=== PATIENT | female | born 2000 | race Caucasian/White ===

== ENCOUNTER 2022-06-25 13:00 | Inpatient (IN) | payer MEDICAID, SELFPAY ==
[2022-06-25] VITALS (23 sets, daily range): BP systolic 112–132; BP diastolic 63–78; PULSE 40–94; TEMP 36.2–36.8; O2SAT 78–100; BMI 29.5
[2022-06-25] MEDS: Lactated Ringers 1,000 ML 50 ML IV (13:25)
[2022-06-25 13:46] LABS: Absolute Lymphocyte Count 2.09 X10^3/uL (0.83-4.51); Absolute Neutrophil Count 7.2 X10^3/uL (2.0-7.7); Basophil# 0.04 X10^3/uL; Basophil% 0.4 % (0-1); Eosinophil# 0.12 X10^3/uL; Eosinophils% 1.2 % (0-5); Hematocrit 35.5 % (37-47); Hemoglobin 11.3 g/dL (12.0-15.0); Lymphocyte # 2.09 X10^3/ul (0.83-4.51); Lymphocyte % 20.3 % (19-41); Mean Corp Hgb Conc 31.8 g/dL (32-36); Mean Corpuscular Hgb 28.2 pg (27.0-32.0); Mean Corpuscular Volume 88.5 fL (81-99); Mean Platelet Vol. 12.8 fl (6.2-12.0); Monocyte# 0.74 X10^3/uL; Monocyte% 7.2 % (0-10); NRBC Flagged by Analyzer 0 % (0-5); Platelet Count 198 K/mm3 (150-450); RBC Distribution Width CV 12.8 % (11.6-14.6); RBC Distribution Width SD 41.1 fl (35.1-43.9); Red Blood Count 4.01 M/mm3 (4.2-5.4); White Blood Count 10.3 K/mm3 (4.4-11.0)
[2022-06-25 14:38] LABS: Rubella IgG Reactive (Nonreactive); Syphilis Antibodies Non-reactive
[2022-06-25 15:18] LABS: Bacteria 0 SEEN /hpf (None Seen); Mucous, Urine 0 SEEN /hpf (<or=2+); Red Blood Cells-Urine 0 SEEN /hpf (0-5); White Blood Cells 0 SEEN /hpf (0-5)
[2022-06-25 15:26] LABS: HIV - WCH Non-Reactive (Nonreactive); Hepatitis B Surface Antigen Non-Reactive (Nonreactive); Hepatitis C Antibody Non-Reactive (Nonreactive)
[2022-06-25 15:38] LABS: Amphetamine Urine VISTA NEGATIVE (<1000 ng/mL); Barbiturate Urine VISTA NEGATIVE (< 200 ng/mL); Benzodiazepine Urine VISTA NEGATIVE (< 200 ng/mL); Cocaine Urine VISTA NEGATIVE (< 300 ng/mL); Ecstacy Urine VISTA NEGATIVE (< 500 ng/mL); Methadone Urine VISTA NEGATIVE (< 300 ng/mL); PCP Urine VISTA NEGATIVE (< 25 ng/mL); THC Urine VISTA NEGATIVE (< 50 ng/mL); Vista UDS pH Range 7
[2022-06-25 15:57] LABS: Color, Urine Yellow (Yellow); Glucose, Dipstick Normal (Normal); Ketone-Dipstick Negative (Negative); Leukocyte Esterase-Dipstick Negative /ul (Negative); Nitrite-Dipstick Negative (Negative); Occult Blood-Urine Negative /ul (Negative); Protein-Dipstick Negative (Negative); Urine Bilirubin Dipstick Negative (Negative); Urine Clarity Clear (Clear); Urine Urobilinogen Normal (Normal)
[2022-06-25 16:00] LABS: Squamous Epithelial Cells - UA 0-5 SEEN /hpf (5-10)
[2022-06-25 17:28] LABS: Chlamydia Trachomatis by PCR Negative (Negative); Neisserai gonorrhoeae by PCR Negative (Negative); Probe Check PASS; Sample Adequacy Control PASS; Specimen Processing Control PASS
--- NOTE | 2022-06-25 17:56 | PCM.HP.OB ---
HPI - General General Date of Admission: 06/25/22 HPI Narrative VU HERRERA, is a 22 F who presents IAL 5 cm and PPROM since night 8 pm. she has received care athome by a meter/relay craftsman miguel faria in the community. no complications per the patient or auto detailer, due date based on lmp and positive testing for july 19. FH measurig consistent with LMP PFSH PFSH Home Medications calcium 300 mg chewable tablet 1 mg PO BID 06/25/22 [History Last Taken 06/24/22 09:00] pnv #[id number] acid-dha 28 mg-975 mcg-200 mg oral powder efferv pk 2 ea PO BID 06/25/22 [History Last Taken 06/24/22 09:00] Allergy/AdvReac Type Severity Reaction Status Date / Time No Known Allergies Allergy Verified 06/25/22 13:00 Surgical History (Updated 06/25/22 @ 13:28 by Yamini Ulloa) History of surgery Social History Smoking Status: Never smoker History Elective abortions Hx Para 1 Spontaneous abortions Hx # Term Pregnancies Ectopic pregnancies Hx # Pregnancies Multiple births # of living children NST FHR Rate Baby A Baseline: 140 Variability:: Moderate Accelerations:: 15 x 15 Decelerations:: None NST Reactive:: Yes FHR Category:: Category I Uterine Activity:: q3-5 ROS Constitutional Constitutional: Reports systems reviewed and no addt'l complaints, except as documented ENT HEENT: Reports systems reviewed and no addt'l complaints, except as documented Cardiovascular Cardiovascular: Reports systems reviewed and no addt'l complaints, except as documented Respiratory/Chest Respiratory/Chest: Reports systems reviewed and no addt'l complaints, except as documented Gastrointestinal Gastrointestinal: Reports systems reviewed and no addt'l complaints, except as documented and nausea; Denies abdominal pain Genitourinary Genitourinary: Reports systems reviewed and no addt'l complaints, except as documented, contractions Details: present and frequency (regular ) and movement Details: present Musculoskeletal Musculoskeletal: Reports systems reviewed and no addt'l complaints, except as documented Integumentary Integumentary: Reports as per HPI Neurologic Neurologic: Reports systems reviewed and no addt'l complaints, except as documented Endocrine Endocrinology: Reports systems reviewed and no addt'l complaints, except as documented Vital Signs Vital Signs Vital Signs: 06/25/22 12:46 06/25/22 12:46 06/25/22 13:06 Temperature Temperature Source Pulse Rate 40 L Blood Pressure 123/70 H BP Systolic 123 BP Diastolic 70 Pulse Ox 78 06/25/22 13:06 06/25/22 14:51 06/25/22 14:51 Temperature Temperature Source Pulse Rate 90 85 Blood Pressure 118/71 BP Systolic 118 BP Diastolic 71 Pulse Ox 06/25/22 14:51 06/25/22 14:51 06/25/22 14:53 Temperature 98.2 F Temperature Source Temporal Pulse Rate Blood Pressure BP Systolic BP Diastolic Pulse Ox 90 06/25/22 15:50 06/25/22 15:50 06/25/22 15:50 Temperature Temperature Source Pulse Rate 94 Blood Pressure 126/78 H BP Systolic 126 BP Diastolic 78 Pulse Ox 100 06/25/22 15:50 06/25/22 16:50 06/25/22 16:50 Temperature 97.1 F L Temperature Source Pulse Rate 82 Blood Pressure 123/69 H BP Systolic 123 BP Diastolic 69 Pulse Ox 06/25/22 16:50 06/25/22 16:50 06/25/22 16:50 Temperature 97.8 F Temperature Source Temporal Pulse Rate Blood Pressure BP Systolic BP Diastolic Pulse Ox 100 Weight Weight: 80.5 kg Body Mass Index (BMI) 29.5 Physical Exam Const alert, oriented x3 and healthy appearing Constitutional Narrative: uncomfortable with contractions HEENT normocephalic and moist oral mucous membranes Head and Scalp: atraumatic Neck full ROM, no lymphadenopathy, supple and thyroid normal General: trachea midline Thyroid: thyroid normal Lymph Lymphatic: no lymphadenopathy noted Chest inspection of chest normal Resp normal respiratory effort Cardio regular rate GI normal to inspection, nondistended, normoactive bowel sounds, soft to palpation and non-tender Inspection: gravid external exam normal Bimanual Exam - Vag & Uterus: uterus non-tender Manual OB Exam: estimated gestational size appropriate, presentation cephalic, dilated, effaced and station Extremity normal to inspection General Extremity: Negative for edema Skin no rashes or lesions noted Neuro deep tendon reflexes 2+ bilaterally Motor Exam: strength 5/5 throughout and clonus absent Psych mental status grossly normal Labs Labs Labs: Blood Type A POSITIVE Antibody Screen NEGATIVE Hct 35.5 % (37-47) L Hgb 11.3 g/dL (12.0-15.0) L Syphilis Total Ab Non-reactive Rubella IgG Antibody Reactive (Nonreactive) Hep Bs Antigen Non-Reactive (Nonreactive) HIV 1&2 Antibody Non-Reactive (Nonreactive) Assessment & Plan (1) premature rupture of membranes (PPROM) with unknown onset of labor: PLAN: Plan admit, give ampicillin, and plan pit if needed but has made cervical change
--- NOTE | 2022-06-25 17:58 | OP.PCM_ITS ---
Assessment & Plan (1) premature rupture of membranes (PPROM) with unknown onset of labor: (2) Vaginal delivery: COMMENT: sewing pattern layout technician miguel faria 36 PPROM COLLEEN Wright Maternal Data Information IWONA Calculator Estimated Delivery Date Method Current WG Current Estimate 07/19/22 Manual 36w 4d Vaginal Delivery Operative Information Date of Procedure: 06/25/22 Pre-Operative Diagnosis: IAL Post-Operative Diagnosis: same Surgery / Procedure Performed: Spontaneous Vaginal Delivery Type of Anesthesia: Local with 1% Lidocaine Special Medications: none Estimated Blood Loss: 100 Fluids Replaced: crystalloid Findings Description of Procedure: Patient began pushing and delivered the head in the STACEY presentation. The head was delivered atraumatically. The anterior and posterior shoulders delivered without complication followed by the rest of the infant and the infant was placed on the maternal abdomen. Delayed cord clamping was employed for approximately 60 seconds. Cord was clamped and cut and gentle traction was applied to the cord and the placenta delivered spontaneously immediately following it was noted to be intact with three-vessel cord. The perineum and vagina were inspected and noted to have a 1st degree laceration repaired ith 3-0 rapide in the usual fashion. EBL was 100 cc. Patient and infant tolerated delivery well. Presentation: STACEY Amniotic Membrane Rupture Type: Spontaneous Amniotic Fluid Description: Clear Placental Delivery Description: Spontaneous Placenta Disposition: [facility] Cord Vessel Description: 3 Vessels Cord Entanglement: None A Gender: Male Delayed Cord Clamping: Yes Post Vaginal Delivery Medications Given After Delivery: IV Pitocin Episiotomy Description: None Laceration: Perineal Extension/lac and 1st degree Complication Complications: None Procedures Urinary/Genital [id number]: [id number] Vaginal Delivery+PP Care([facility])
--- NOTE | 2022-06-25 18:01 | DCINST_ITS ---
Discharge Instructions Diet Discharge Diet: No restrictions Activity Discharge Activity: Return to Normal Activity, May Drive, May Shower and May Take a Tub Bath (in 4 weeks) May resume sexual activity in: 6-8 weeks (after seen by OB provider) Weight Bearing Status: Full weight bearing Lifting Restrictions: none Dressing / Incision Call your doctor if you observe: Fever of 101 or Higher, Inability to urinate, Using more than 1 pad per hour (for more than 2 hours in a row or more), Shortness of breath, Dizziness, Chest pain and - (headache not controlled with tylenol, change in vision) Follow Up Care When: in 6 weeks for visit, call the office to make the appointment. If you had elevated blood pressures call the office to be seen within 1 week. Test Results: Test results from this visit will be discussed in further detail at your follow- up appointment, if applicable. Discharge Plan Admission Admit Date/Time: 06/25/22 13:00 Attending Provider: Shantal Shook Primary Care Provider: Care Physician,Marlys Primary Discharge Orders/Prescriptions Prescriptions: No Action pnv #[id number] 28-975-200 mg-mcg-mg Powder Effervescent In Packet 2 ea PO BID calcium 300 mg Tablet,Chewable 1 mg PO BID Referrals / Follow Up: Care Physician,No Primary [Primary Care Provider] -
--- NOTE | 2022-06-25 19:17 | NURSING ---
Dr. Shook would like pitocin IM to be given first if increase of bleeding
[2022-06-25] MEDS: 0.9% Saline Lock 10 ML Syringe IV (20:12)
[2022-06-25] MEDS: Benzocaine/Lanolin/Aloe Vera 1 SPRAY EACH TOPICAL (20:12)
[2022-06-26] VITALS (11 sets, daily range): BP systolic 104–116; BP diastolic 63–69; PULSE 58–82; RESP 14–16; TEMP 36.1–36.6; O2SAT 99–100
--- NOTE | 2022-06-26 02:43 | NURSING ---
report given to emmy RN. that RN to assume care of couplet at this time.
--- NOTE | 2022-06-26 10:11 | PCM.PN.OB ---
Subjective Subjective Patient doing well without complaints. Tolerating PO. Ambulating and voiding without difficulty. feeding well. Denies chest pain, shortness of breath, calf pain/swelling, fevers, chills, lightheadedness. Objective Data Objective Data Vital Signs: Vital Signs Temp Pulse Resp BP Pulse Ox O2 Del Method 97.5 F L 82 16 108/65 99 Room Air 06/26/22 08:20 06/26/22 08:20 06/26/22 08:20 06/26/22 08:20 06/26/22 04:02 06/26/22 04:02 Oxygen Delivery Method Room Air Weight: 80.5 kg Body Mass Index (BMI) 29.5 Intake & Output: Intake and Output for Last 24 Hours 06/24/22 06/25/22 06/26/22 23:59 23:59 23:59 Intake Total 654.17 / 654.17 Output Total 500 / 500 600 / 600 Balance 154.17 / 154.17 -600 / -600 Lab / Micro Data Result Diagrams: 06/25/22 13:10 Labs: Laboratory Results - last 24 hr 06/25/22 13:10: WBC 10.3, RBC 4.01 L, Hgb 11.3 L, Hct 35.5 L, MCV 88.5, MCH 28.2, MCHC 31.8 L, RDW Std Deviation 41.1, RDW Coeff of Renzo 12.8, Plt Count 198, MPV 12.8 H, Immature Gran % (Auto) 0.900, Neut % (Auto) 70.0, Lymph % (Auto) 20.3, [place] % (Auto) 7.2, Eos % (Auto) 1.2, Baso % (Auto) 0.4, Absolute Neuts (auto) 7.2, Absolute Lymphs (auto) 2.09, Nucleated RBC % 0 06/25/22 13:10: Blood Type A POSITIVE, Antibody Screen NEGATIVE 06/25/22 13:10: Syphilis Total Ab Non-reactive, Rubella IgG Antibody Reactive 06/25/22 13:10: Hep Bs Antigen Non-Reactive, Hepatitis C Antibody Non-Reactive, HIV 1&2 Antibody Non-Reactive 06/25/22 14:50: Urine Color Yellow, Urine Clarity Clear, Urine pH 7.0, Ur Specific [place] 1.010, Urine Protein Negative, Urine Glucose (UA) Normal, Urine Ketones Negative, Urine Occult Blood Negative, Urine Nitrite Negative, Urine Bilirubin Negative, Urine Urobilinogen Normal, Ur Leukocyte Esterase Negative, Urine RBC 0 SEEN, Urine WBC 0 SEEN, Ur Squamous Epith Cells 0-5 SEEN, Urine Bacteria 0 SEEN, Urine Mucus 0 SEEN 06/25/22 14:50: Urine Opiates Screen NEGATIVE, Urine Methadone Screen NEGATIVE, Ur Barbiturates Screen NEGATIVE, Ur Phencyclidine Scrn NEGATIVE, Ur Amphetamines Screen NEGATIVE, MDMA (Ecstasy) Screen NEGATIVE, U Benzodiazepines Scrn NEGATIVE, Urine Cocaine Screen NEGATIVE, U Cannabinoids Screen NEGATIVE, Ur Drug Screen Comment 06/25/22 14:50: Chlam trachomat DNA PCR Negative, N.gonorrhoeae DNA (PCR) Negative ROS Constitutional Constitutional: Reports systems reviewed and no addt'l complaints, except as documented Cardiovascular Cardiovascular: Reports systems reviewed and no addt'l complaints, except as documented Respiratory/Chest Respiratory/Chest: Reports systems reviewed and no addt'l complaints, except as documented Gastrointestinal Gastrointestinal: Reports systems reviewed and no addt'l complaints, except as documented Physical Exam Const alert, oriented x3 and no apparent distress HEENT Head and Scalp: atraumatic Resp normal respiratory effort GI soft to palpation and non-tender Bimanual Exam - Vag & Uterus: uterus non-tender Uterus Palpation: uterus fundus firm (below Umbilicus) Assessment & Plan (1) Vaginal delivery: COMMENT: meter/relay technician miguel faria 35 PPROM COLLEEN Wright (2) premature rupture of membranes (PPROM) with unknown onset of labor: PLAN: Plan s/p PPD # 1 1. routine post delivery care 2. breast feeding- support given
[2022-06-27 01:35] VITALS: BP 102/59; PULSE 65
[2022-06-27 01:39] VITALS: BP 102/59; PULSE 65; RESP 18; TEMP 36.6; O2SAT 98
[2022-06-27 09:04] VITALS: BP 107/56; PULSE 91; RESP 16; TEMP 36.5; O2SAT 100; O2SAT 99
[2022-06-27 09:05] VITALS: BP 107/56; PULSE 88
--- NOTE | 2022-06-27 09:55 | PN.OBGYN_ITS ---
Subjective Subjective Patient doing well without complaints. Tolerating PO. Ambulating and voiding without difficulty. feeding well. Denies chest pain, shortness of breath, calf pain/swelling, fevers, chills, lightheadedness. Objective Data Objective Data Vital Signs: Vital Signs Temp Pulse Resp BP Pulse Ox O2 Del Method 97.7 F L 88 16 107/56 L 100 Room Air 06/27/22 09:04 06/27/22 09:05 06/27/22 09:04 06/27/22 09:05 06/27/22 09:04 06/27/22 09:04 Oxygen Delivery Method Room Air Weight: 80.5 kg Body Mass Index (BMI) 29.5 Intake & Output: Intake and Output for Last 24 Hours 06/25/22 06/26/22 06/27/22 23:59 23:59 23:59 Intake Total 654.17 / 654.17 Output Total 500 / 500 600 / 600 Balance 154.17 / 154.17 -600 / -600 Lab / Micro Data Result Diagrams: 06/25/22 13:10 ROS Constitutional Constitutional: Reports systems reviewed and no addt'l complaints, except as documented Cardiovascular Cardiovascular: Reports systems reviewed and no addt'l complaints, except as documented Respiratory/Chest Respiratory/Chest: Reports systems reviewed and no addt'l complaints, except as documented Gastrointestinal Gastrointestinal: Reports systems reviewed and no addt'l complaints, except as documented Physical Exam Const alert, oriented x3 and no apparent distress HEENT Head and Scalp: atraumatic Resp normal respiratory effort GI soft to palpation and non-tender Bimanual Exam - Vag & Uterus: uterus non-tender Uterus Palpation: uterus fundus firm (below Umbilicus) Assessment & Plan (1) Vaginal delivery: COMMENT: back feeder plywood layup line miguel faria 35 PPROM COLLEEN Wright (2) premature rupture of membranes (PPROM) with unknown onset of labor: PLAN: Plan s/p PPD # 2 1. routine post delivery care 2. breast feeding- support given
== END 2022-06-27 10:30 | disposition home or self-care (01) | DRG 560 ==
LOC: WPOUT 13:01 → WP 13:01
PROVIDERS: Admitting Provider Obstetrics & Gynecology; Referring Provider Obstetrics & Gynecology; Visit Provider Obstetrics & Gynecology
DX: O42.913 Preterm premature rupture of membranes, unspecified as to length of time between rupture and onset of labor, third trimester (principal); Z37.0 Single live birth; O70.0 First degree perineal laceration during delivery; Z3A.36 36 weeks gestation of pregnancy
CPT/HCPCS: 59025; 59050; 76815; 80307; 81001; 85025; 86703; 86762; 86780; 86803; 86850; 86900; 86901; 87340; 87491; 87591; 99218; J7120; A4216; G0378